=== PATIENT | female | born 1960 | race African-American/Black ===

== ENCOUNTER 2018-08-28 02:06 | Emergency (ER) | payer OTHER ==
[~2018-08-28] VITALS: Ht 162.6 cm; Wt 62.3 kg
[2018-08-28 03:45] VITALS: BP 132/70
== END 2018-08-28 03:57 | disposition home or self-care (01) ==
LOC: EMS 02:06
DX: B35.3 Tinea pedis (principal); L98.8 Other specified disorders of the skin and subcutaneous tissue; F17.210 Nicotine dependence, cigarettes, uncomplicated; F12.90 Cannabis use, unspecified, uncomplicated; Z88.6 Allergy status to analgesic agent; Z88.8 Allergy status to other drugs, medicaments and biological substances

== ENCOUNTER 2018-09-07 04:10 | Emergency (ER) | payer OTHER ==
[~2018-09-07] VITALS: Ht 162.6 cm; Wt 62.3 kg
[2018-09-07 05:05] VITALS: BP 107/67
== END 2018-09-07 05:10 | disposition home or self-care (01) ==
LOC: EMS 04:12
DX: H61.21 Impacted cerumen, right ear (principal); H73.012 Bullous myringitis, left ear; F17.210 Nicotine dependence, cigarettes, uncomplicated; F12.90 Cannabis use, unspecified, uncomplicated; Z88.6 Allergy status to analgesic agent; Z88.8 Allergy status to other drugs, medicaments and biological substances
CPT/HCPCS: 69209

== ENCOUNTER 2019-10-21 08:47 | Emergency (ER) | payer OTHER ==
[~2019-10-21] VITALS: Ht 162.6 cm; Wt 63.6 kg
[2019-10-21] MEDS ORDERED: ACETAMINOPHEN 500 MG TABLET PO ONE (10:45)
[2019-10-21 12:19] VITALS: BP 110/61
== END 2019-10-21 12:21 | disposition home or self-care (01) ==
LOC: EMS 08:52
DX: S62.347A Nondisplaced fracture of base of fifth metacarpal bone, left hand, initial encounter for closed fracture (principal); F12.90 Cannabis use, unspecified, uncomplicated; Z88.6 Allergy status to analgesic agent; W05.1XXA Fall from non-moving nonmotorized scooter, initial encounter; Y93.89 Activity, other specified; Y92.89 Other specified places as the place of occurrence of the external cause; Y99.8 Other external cause status
CPT/HCPCS: 29515; 73110-TC; 73130-TC; Z7502; Z7610